=== PATIENT | male | born 1960 | race African-American/Black ===

== ENCOUNTER 2017-01-29 11:07 | Emergency (ER) | payer OTHER ==
[~2017-01-29] VITALS: Ht 170.2 cm; Wt 71.0 kg
[2017-01-29 12:42] VITALS: BP 144/92
== END 2017-01-29 12:53 | disposition home or self-care (01) ==
LOC: EMS 11:08
DX: Z00.8 Encounter for other general examination (principal)
CPT/HCPCS: 99281

== ENCOUNTER 2020-12-08 14:20 | Emergency (ER) | payer MEDICAID, OTHER ==
[~2020-12-08] VITALS: Ht 170.2 cm; Wt 65.0 kg
[2020-12-08 14:21] VITALS: BP 111/78
[2020-12-08] MEDS ORDERED: PredniSONE 20 MG TABLET PO ONE (15:45)
[2020-12-08] MEDS ORDERED: ACYCLOVIR 200 MG CAPSULE PO ONE (15:45)
== END 2020-12-08 16:10 | disposition home or self-care (01) ==
LOC: EMS 14:23
DX: B02.9 Zoster without complications (principal); F17.200 Nicotine dependence, unspecified, uncomplicated; F12.90 Cannabis use, unspecified, uncomplicated
CPT/HCPCS: 99283; J7512

== ENCOUNTER 2022-08-17 12:28 | Emergency (ER) | payer MEDICAID ==
[~2022-08-17] VITALS: Ht 170.2 cm; Wt 63.6 kg
[2022-08-17] MEDS ORDERED: DICLOFENAC SODIUM 1% 100 GM GEL [4GM] TP ONE (13:45)
[2022-08-17 15:08] VITALS: BP 130/77
== END 2022-08-17 15:10 | disposition home or self-care (01) ==
LOC: EMS 12:31
DX: S82.001A Unspecified fracture of right patella, initial encounter for closed fracture (principal); F12.90 Cannabis use, unspecified, uncomplicated; W01.0XXA Fall on same level from slipping, tripping and stumbling without subsequent striking against object, initial encounter; Y93.01 Activity, walking, marching and hiking; Y92.89 Other specified places as the place of occurrence of the external cause; Y99.8 Other external cause status
CPT/HCPCS: 29505; 99283